=== PATIENT | female | born 1960 | race Caucasian/White ===

== ENCOUNTER 2017-06-18 19:31 | Emergency (ER) | payer BC ==
[2017-06-19] MEDS ORDERED: HYDR-565 PO (04:33)
[2017-06-19] MEDS ORDERED: FLO0.4C PO (04:33)
== END 2017-06-18 20:31 | disposition left against medical advice (07) ==
LOC: ER 19:32
DX: N23 Unspecified renal colic (principal); R11.10 Vomiting, unspecified; Z53.21 Procedure and treatment not carried out due to patient leaving prior to being seen by health care provider

== ENCOUNTER 2017-06-19 02:58 | Emergency (ER) | payer BC ==
[~2017-06-19] VITALS: Ht 165.1 cm; Wt 59.8 kg
[2017-06-19 03:07] VITALS: BP 132/84
[2017-06-19] MEDS ORDERED: normal saline 1000ML IV soln IVB ONE (03:15)
[2017-06-19] MEDS ORDERED: ketorolac tromethamine 15mg/ml inj. IV ONE (03:15)
[2017-06-19] MEDS ORDERED: ondansetron/PF 4mg/2ml inj IV ONE (03:15)
[2017-06-19 03:44] LABS: BASOPHILS % (AUTO) 0 % (0-1); EOSINOPHILS % (AUTO) 0 % (0-6); HEMATOCRIT 44.5 % (35.0-45.0); LYMPHOCYTES # (AUTO) 0.8 X10'3 (1.1-4.8); LYMPHOCYTES % (AUTO) 7.8 % (21-51); MEAN CORPUSCULAR HEMOGLOBIN 32.8 PG (27.0-31.0); MEAN CORPUSCULAR HGB CONC 33.7 % (33.0-36.5); MEAN CORPUSCULAR VOLUME 97.4 FL (78-98); MEAN PLATELET VOLUME 7.9 FL (7.4-10.4); MONOCYTES # (AUTO) 0.5 X10'3 (0-0.9); MONOCYTES % (AUTO) 4.9 % (2-12); NEUTROPHILS # (AUTO) 9.4 X10'3 (1.8-7.7); NEUTROPHILS % (AUTO) 87.3 % (42-75); PLATELET COUNT 403 X10'3 (140-440); RED BLOOD COUNT 4.57 X10'6 (4.20-5.60); RED CELL DISTRIBUTION WIDTH 12.7 % (11.5-14.5); WHITE BLOOD COUNT 10.8 X10'3 (4.5-11.0)
[2017-06-19 03:58] LABS: ALANINE AMINOTRANSFERASE 26 U/L (12-78); ALBUMIN 4.6 G/DL (3.4-5.0); ALBUMIN/GLOBULIN RATIO 1.1 (1.1-1.5); ALKALINE PHOSPHATASE 114 IU/L (46-116); ANION GAP 11 (8-16); ASPARTATE AMINO TRANSFERASE 22 U/L (10-37); BILIRUBIN,TOTAL 0.5 MG/DL (0.1-1.0); BLOOD UREA NITROGEN 17 MG/DL (7-18); BUN/CREATININE RATIO 17.5 (6.6-38.0); CHLORIDE 101 MMOL/L (99-107); CREATININE 0.97 MG/DL (0.40-0.90); GLUCOSE 118 MG/DL (70-104); POTASSIUM 3.9 MMOL/L (3.5-5.1); SODIUM 140 MMOL/L (135-145); TOTAL CARBON DIOXIDE 27.6 MMOL/L (24-32); TOTAL PROTEIN 8.9 G/DL (6.4-8.2); eGFR 60 ML/MIN
[2017-06-19 04:04] LABS: CLARITY,URINE CLOUDY (Clear); COLOR,URINE BROWN (Yellow); GLUCOSE, URINE NEGATIVE (Neg); KETONES,URINE 15 mg/dl (Neg); LEUKOCYTE ESTERASE ,URINE TRACE (Neg); OCCULT BLOOD,URINE LARGE (Neg); PH,URINE 6.5 (4.8-8.0); PROTEIN,URINE 100 mg/dl (Neg)
[2017-06-19 04:17] LABS: UA COLLECTION TYPE VOIDED
[2017-06-19 04:19] LABS: NITRITES, URINE NEGATIVE (Neg)
[2017-06-19 04:23] LABS: BACTERIA,URINE FEW /HPF (Neg); RBC,URINE TNTC /HPF (0-2); SQUAMOUS EPITHELIAL CELL,UR FEW /LPF (FEW)
[2017-06-19 04:24] LABS: MUCUS STRANDS FEW /LPF (Neg)
[2017-06-19] MEDS ORDERED: FLO0.4C PO (04:33)
[2017-06-19] MEDS ORDERED: HYDR-565 PO (04:33)
== END 2017-06-19 04:45 | disposition home or self-care (01) ==
LOC: ER 02:58
DX: N23 Unspecified renal colic (principal); Z87.442 Personal history of urinary calculi; Z88.5 Allergy status to narcotic agent; Z88.0 Allergy status to penicillin; Z88.2 Allergy status to sulfonamides; Z88.8 Allergy status to other drugs, medicaments and biological substances
CPT/HCPCS: 36415; 80053; 81001; 85025; 87088; 96361; 96374; 96375; 99284; J1885; J2270; J2405; J7030

== ENCOUNTER 2017-06-30 09:59 | Inpatient (IN) | payer BC ==
[2017-06-30] VITALS (16 sets, daily range): BP systolic 107–161; BP diastolic 65–90
[~2017-06-30] VITALS: Ht 162.6 cm; Wt 56.8 kg
[~2017-06-30 09:59] MED LIST: FLO0.4C PO; HYDR-565 PO
[2017-06-30] MEDS ORDERED: meperidine/PF 50mg/ml syringe IV ONE (10:10)
[2017-06-30] MEDS ORDERED: ketorolac trometh. 30mg/ml inj. IV ONE (10:10)
[2017-06-30] MEDS ORDERED: ondansetron/PF 4mg/2ml inj IV ONE (10:10)
[2017-06-30] MEDS ORDERED: normal saline 1000ML IV soln IVB ONE (10:10)
[2017-06-30 11:18] LABS: BASOPHILS # (AUTO) 0.1 X10'3 (0-0.2); BASOPHILS % (AUTO) 0.6 % (0-1); EOSINOPHILS # (AUTO) 0.1 X10'3 (0-0.9); HEMATOCRIT 40.1 % (35.0-45.0); HEMOGLOBIN 13.6 g/dl (12.0-16.0); LYMPHOCYTES # (AUTO) 1.1 X10'3 (1.1-4.8); LYMPHOCYTES % (AUTO) 10.6 % (21-51); MEAN CORPUSCULAR HGB CONC 33.8 % (33.0-36.5); MEAN CORPUSCULAR VOLUME 97.6 FL (78-98); MONOCYTES # (AUTO) 0.6 X10'3 (0-0.9); MONOCYTES % (AUTO) 5.6 % (2-12); NEUTROPHILS # (AUTO) 8.4 X10'3 (1.8-7.7); NEUTROPHILS % (AUTO) 82.2 % (42-75); PLATELET COUNT 368 X10'3 (140-440); RED BLOOD COUNT 4.11 X10'6 (4.20-5.60); RED CELL DISTRIBUTION WIDTH 12.4 % (11.5-14.5); WHITE BLOOD COUNT 10.2 X10'3 (4.5-11.0)
[2017-06-30 11:30] LABS: PARTIAL THROMBOPLASTIN TIME 28 SECONDS (22-32); PROTHROMBIN TIME 10.5 SECONDS (9.0-12.0)
[2017-06-30 11:40] LABS: ALANINE AMINOTRANSFERASE 29 U/L (12-78); ALBUMIN 3.9 G/DL (3.4-5.0); ALKALINE PHOSPHATASE 98 IU/L (46-116); ANION GAP 10 (8-16); ASPARTATE AMINO TRANSFERASE 21 U/L (10-37); BILIRUBIN,TOTAL 0.4 MG/DL (0.1-1.0); BLOOD UREA NITROGEN 9 MG/DL (7-18); BUN/CREATININE RATIO 11.3 (6.6-38.0); CALCIUM 9.7 MG/DL (8.5-10.1); CHLORIDE 103 MMOL/L (99-107); GLUCOSE 93 MG/DL (70-104); POTASSIUM 3.7 MMOL/L (3.5-5.1); SODIUM 140 MMOL/L (135-145); TOTAL CARBON DIOXIDE 26.8 MMOL/L (24-32); eGFR 74 ML/MIN
[2017-06-30 12:01] LABS: CLARITY,URINE CLOUDY (Clear); COLOR,URINE YELLOW (Yellow); GLUCOSE, URINE NEGATIVE (Neg); KETONES,URINE 15 mg/dl (Neg); LEUKOCYTE ESTERASE ,URINE NEGATIVE (Neg); NITRITES, URINE NEGATIVE (Neg); OCCULT BLOOD,URINE LARGE (Neg); PROTEIN,URINE 100 mg/dl (Neg); UA COLLECTION TYPE CLN CATCH MIDSTREAM; UROBILINOGEN,URINE 0.2 E.U/dL (0.2-1.0)
[2017-06-30 12:10] LABS: MUCUS STRANDS MODERATE /LPF (Neg); SQUAMOUS EPITHELIAL CELL,UR FEW /LPF (FEW)
[2017-06-30 12:11] LABS: BACTERIA,URINE 2+ /HPF (Neg); RBC,URINE TNTC /HPF (0-2)
[2017-06-30] MEDS ORDERED: tamsulosin 0.4mg capsule PO STA (12:38)
[2017-06-30] MEDS ORDERED: ATEN-169 PO (14:55)
[2017-06-30] MEDS ORDERED: CIPR-259 PO (14:55)
[2017-06-30] MEDS ORDERED: acetaminophen 325mg tablet PO PRN (15:20)
[2017-06-30] MEDS ORDERED: magnesium hydroxide 30ml (MOM) UD suspension PO PRN (15:20)
[2017-06-30] MEDS ORDERED: mag hydrox/Alum hydrox/simeth 30ml oral suspension PO PRN (15:20)
[2017-06-30] MEDS: normal saline 1000ml 1,000 ML IV SCH ×2 (17:49→22:10)
[2017-06-30] MEDS ORDERED: iohexol 300 MG/1 ML 50ml polymer ONE (18:10)
[2017-06-30] MEDS ORDERED: propofol inj 20 ML IV ONE (18:15)
[2017-06-30] MEDS ORDERED: midazolam 2 mg/2 ml injection ONE (18:15)
[2017-06-30] MEDS ORDERED: fentaNYL/PF 50MCG/1 ML 2ML syringe ONE (18:15)
[2017-06-30] MEDS ORDERED: dexamethasone sod phosphate 4mg/ml inj. ONE (18:17)
[2017-06-30] MEDS ORDERED: sevoflurane 250ml liquid IH ONE (18:24)
[2017-06-30] MEDS ORDERED: levoFLOXACIN-Levaquin 500mg/D5 100 ML IV ONE (18:31)
[2017-06-30] MEDS ORDERED: ringers solution, lacted 1,000 ML IV SCH (19:22)
[2017-06-30] MEDS ORDERED: meperidine/PF 25mg/ml syringe IV PRN ×3 (19:25)
[2017-06-30] MEDS ORDERED: proCHLORperazine 10 MG/2 ml inj IV PRN (19:25)
[2017-06-30] MEDS ORDERED: ondansetron/PF 4mg/2ml inj IV PRN (19:25)
[2017-07-01] VITALS: BP_SYST 112; BP_SYST 120; BP_DIAS 65; BP_DIAS 72
[2017-07-01 04:00] VITALS: BP 127/77
[2017-07-01 04:59] LABS: BASOPHILS % (AUTO) 0.2 % (0-1); EOSINOPHILS % (AUTO) 0.3 % (0-6); HEMATOCRIT 36.6 % (35.0-45.0); HEMOGLOBIN 12.3 g/dl (12.0-16.0); LYMPHOCYTES # (AUTO) 0.3 X10'3 (1.1-4.8); MEAN CORPUSCULAR HEMOGLOBIN 32.8 PG (27.0-31.0); MEAN CORPUSCULAR HGB CONC 33.6 % (33.0-36.5); MEAN CORPUSCULAR VOLUME 97.5 FL (78-98); MONOCYTES % (AUTO) 1.1 % (2-12); NEUTROPHILS # (AUTO) 3.9 X10'3 (1.8-7.7); NEUTROPHILS % (AUTO) 90.4 % (42-75); PLATELET COUNT 353 X10'3 (140-440); RED BLOOD COUNT 3.75 X10'6 (4.20-5.60); RED CELL DISTRIBUTION WIDTH 12.5 % (11.5-14.5); WHITE BLOOD COUNT 4.3 X10'3 (4.5-11.0)
[2017-07-01 05:30] LABS: ANION GAP 8 (8-16); BLOOD UREA NITROGEN 9 MG/DL (7-18); BUN/CREATININE RATIO 12.3 (6.6-38.0); CALCIUM 8.9 MG/DL (8.5-10.1); CHLORIDE 109 MMOL/L (99-107); CREATININE 0.73 MG/DL (0.40-0.90); GLUCOSE 117 MG/DL (70-104); POTASSIUM 4.2 MMOL/L (3.5-5.1); SODIUM 141 MMOL/L (135-145); TOTAL CARBON DIOXIDE 23.6 MMOL/L (24-32); eGFR 83 ML/MIN
[2017-07-01] MEDS: normal saline 1000ml 1,000 ML IV SCH (06:37)
[2017-07-01 07:00] VITALS: BP 144/78
[2017-07-01 07:30] VITALS: BP_SYST 109; BP_SYST 117; BP_SYST 144; BP_DIAS 68; BP_DIAS 70; BP_DIAS 78
[2017-07-01] MEDS ORDERED: atorvastatin 20mg tablet PO SCH (08:00)
[2017-07-01] MEDS ORDERED: tamsulosin 0.4mg capsule PO SCH (08:00)
[2017-07-01] MEDS ORDERED: amLODIPine 5mg tablet PO SCH (08:00)
[2017-07-01] MEDS ORDERED: normal saline 500ml IV soln 500 ML IVB ONE (09:43)
[2017-07-01 11:00] VITALS: BP 147/75
[2017-07-01 13:12] LABS: TROPONIN I < 0.04 NG/ML (0.0-0.05)
== END 2017-07-01 16:44 | disposition home or self-care (01) | DRG 669 ==
LOC: ER 10:00 → ED HOLD 15:17 → SUR 3N 17:36 → PACU 18:05 → SUR 3N 20:20
PROVIDERS: ADMIT Family Medicine; ATTEND Family Medicine
PROC: 0T778DZ Dilation of Left Ureter with Intraluminal Device, Via Natural or Artificial Opening Endoscopic (ICD-10-PCS; 2017-06-30)
PROC: 0TC78ZZ Extirpation of Matter from Left Ureter, Via Natural or Artificial Opening Endoscopic (ICD-10-PCS; principal; 2017-06-30 18:24)
DX: N13.2 Hydronephrosis with renal and ureteral calculous obstruction (principal); N39.0 Urinary tract infection, site not specified; Z87.442 Personal history of urinary calculi; Z88.6 Allergy status to analgesic agent; Z88.5 Allergy status to narcotic agent; Z88.0 Allergy status to penicillin; Z88.2 Allergy status to sulfonamides; Z88.8 Allergy status to other drugs, medicaments and biological substances
CPT/HCPCS: 93306; 96361; 96374; 96375; 99285; Z7506; 36415; 74018; 74176; 76000; 80048; 80053; 81001; 83735; 84439; 84443; 84484; 85025; 85610; 85730; 87070; 87088; 93005; A4402; C1758; C1769; C2617; J1100; J1885; J1956; J2175; J2250; J2405; J2704; J3010; J7030; J7120; Q9967